=== PATIENT | female | born 1940 | race Caucasian/White ===

== ENCOUNTER 2019-01-30 17:38 | Emergency (ER) | payer MEDICARE ==
[2019-01-30 19:06] LABS: #Basophils 0.1 thou/uL (0.0-0.2); #Eosinphils 0.1 thou/uL (0.0-0.7); #Lymphocytes 2.3 thou/uL (1.20-3.40); #Monocytes 0.7 thou/uL (0.11-0.59); #Neutrophils 6.2 thou/uL (1.40-6.50); %Eosinophils 1.6 % (0.0-10.0); %Lymphocytes 24.1 % (21.0-51.0); %Monocytes 7.1 % (0.0-10.0); %Neutrophils 66.2 % (42.0-75.0); Hemoglobin 14.3 g/dL (12.0-16.0); Mean Corpuscular HGB CONC 31.7 g/dL (32.0-36.0); Mean Corpuscular Volume 94.6 fL (78.0-98.0); Platelet Count 295 thou/uL (130-400); RBC Distribution Width 12.8 % (11.5-14.5); Red Blood Cell (RBC) Count 4.76 mill/uL (4.20-5.40); White Blood Cell (WBC) Count 9.3 thou/uL (4.8-10.8)
[2019-01-30 19:27] LABS: ALT (SGPT) Less than 7 U/L (8-55); AST (SGOT) 13 U/L (5-34); Albumin 3.5 g/dL (3.4-4.8); Alkaline Phosphatase 105 U/L (40-150); Anion Gap 14 mmol/L (10-20); BUN (Urea Nitrogen) 19 mg/dL (9.8-20.1); Bilirubin, Total 0.5 mg/dL (0.2-1.2); Calc. Creatinine Clearance 0 mL/min (70-130); Calcium 9.1 mg/dL (7.8-10.44); Carbon Dioxide 27 mmol/L (23-31); Chloride 103 mmol/L (98-107); Estimated GFR-MDRD 77; Globulin 3.2 g/dL (2.4-3.5); Glucose 89 mg/dL (83-110); Potassium 4.3 mmol/L (3.5-5.1); Protein, Total 6.7 g/dL (6.0-8.3); Sodium 140 mmol/L (136-145)
--- NOTE | 2019-01-30 21:04 | ULT ---
Exam: Ultrasound abdominal aorta: HISTORY: Patient gives a history of aortic aneurysm. COMPARISON: None FINDINGS: Extensive atherosclerotic calcific changes of the abdominal aorta. There is evidence of an approximat jame 4 x 4.5 cm diameter aneurysm in the region of the inferior abdominal aorta which contains a very large amount of plaque and thrombus with a much smaller lumen diameter. Bifurcation region is un remarkable. The iliac arteries show no evidence for focal aneurysm. 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 No evidence for abnormal periaortic fluid collection.
[2019-01-30] MEDS ORDERED: Bacitracin Zinc 1 Packet ONE (21:48)
== END 2019-01-30 21:53 | disposition home or self-care (01) ==
LOC: ERS 17:38
DX: I71.4 Abdominal aortic aneurysm, without rupture (principal); F17.210 Nicotine dependence, cigarettes, uncomplicated
CPT/HCPCS: 36415; 76775; 80053; 85025